=== PATIENT | male | born 1960 | race Caucasian/White ===

== ENCOUNTER 2018-01-09 16:17 | Outpatient (CLI) | payer BC, SELFPAY ==
--- NOTE | 2018-01-09 15:38 | DI.RAD_ITS ---
SYMPTOM/DIAGNOSIS: COUGH, R 05 PA AND LATERAL CHEST: Comparison is made with 12/18/08. The heart is normal in size. The lungs are clear. The mediastinal structures and pleura appear intact. CONCLUSION: Normal chest.
== END 2018-01-09 16:37 ==
PROVIDERS: PCP Internal Medicine; Visit Provider Nurse Practitioner
DX: R05 Cough (principal)
CPT/HCPCS: 71046